=== PATIENT | male | born 1990 | race Caucasian/White ===

== ENCOUNTER 2019-08-19 21:00 | Emergency (ER) | payer OTHER ==
[~2019-08-19] VITALS: Ht 167.7 cm; Wt 68.9 kg
[2019-08-19 21:00] VITALS: BP 128/70
[2019-08-19] MEDS ORDERED: LIDOCAINE 1% INJ 20 ML 20 ML VIAL INJ ONE (21:15)
[2019-08-19] MEDS ORDERED: TETANUS,DIPTH,PERTUSS P/F (BOOSTRIX) 0.5 ML VIAL IM ONE (21:15)
--- NOTE | 2019-08-19 21:17 | ED Upper Extremity ---
General Chief Complaint: Laceration Stated Complaint: WRIST INJURY Nursing Triage Note: Patient is brought in via [facility]. Patient is currently in custody. Patient has cuts on his left wrist. Nursing Sepsis Screen: No Definite Risk Source: patient, police Exam Limitations: no limitations History of Present Illness Date Seen by Provider: Aug 19, 2019 Time Seen by Provider: 21:00 Initial Comments The patient is a 29-year-old male who presents for evaluation of a laceration to the left wrist. He is in place custody. Police mention to myself and the nurse prior to bringing him into the emergency department that the patient is a suspect in a violent homicide and that he is being brought in for evaluation of a laceration to his left wrist. The patient denies suicidal thoughts at this time. He is alert, calm, and answering questions appropriately. He states that he is not up-to-date with his tetanus immunization status. The laceration is superficial and he has full range of motion of his left forearm/wrist/hand. There is no bleeding. Onset: just prior to arrival Severity: mild Pain/Injury Location: left wrist (laceration) Method of Injury: incised Allergies and Home Medications Allergies Coded Allergies: No Known Drug Allergies (Unverified , 08/19/19) Patient Home Medication List Home Medication List Reviewed: Yes Review of Systems Constitutional: no symptoms reported EENTM: no symptoms reported Respiratory: no symptoms reported Cardiovascular: no symptoms reported Gastrointestinal: no symptoms reported Genitourinary: no symptoms reported Skin: other (laceration to the left wrist, superficial) Psychiatric/Neurological: No Symptoms Reported All Other Systems Reviewed Negative Unless Noted: Yes Past Xoiorkh-Meclsm-Ucvadt Hx Past Med/Social Hx: Reviewed Nursing Past Med/Soc Hx Patient Social History Recent Foreign Travel: No Contact w/Someone Who Travel: No Recent Infectious Disease Expo: No Physical Exam Vital Signs Vital Signs - First Documented 08/19/19 21:00 Temp 39.9 Pulse 92 Resp 18 B/P (MAP) 128/70 (89) Pulse Ox 100 O2 Delivery Room Air Capillary Refill : Less Than 3 Seconds Height, Weight, BMI Height: '" Weight: lbs. oz. kg; 24.00 BMI Method: General Appearance: WD/WN, no apparent distress HEENT: PERRL/EOMI, pharynx normal Neck: full range of motion, normal inspection Cardiovascular: regular rate, rhythm, no edema Respiratory: lungs clear, normal breath sounds, no respiratory distress, no accessory muscle use Shoulder: normal inspection, non-tender, no evidence of injury, normal ROM Elbow/Forearm: normal inspection, non-tender, no evidence of injury, normal ROM Wrist: Yes normal ROM, Yes abrasions (superficial laceration to left wrist approximately 4 cm in length) Hand: normal inspection, non-tender, no evidence of injury, normal ROM Neurologic/Psychiatric: broom bundler II-XII nml as tested, no motor/sensory deficits, alert, normal mood/affect, oriented x 3 Skin: normal color, warm/dry Procedures/Interventions Wound Location: Upper Extremities (left wrist) Other Wound Location left wrist, superficial Wound Length (cm): 4 Wound's Depth, Shape: superficial Wound Explored: clean Irrigated w/ Saline (ccs): 250 Anesthesia: 1% Lidocaine Volume Anesthetic (ccs): 2 Suture: Plain Suture Size: 4-0 Number of Sutures: 4 Layer Closure?: 1 Progress Patient tolerated the repair well and there were no consultations, antibiotic ointment applied with sterile dressing Progress/Results/Core Measures Results/Orders My Orders Orders - JON CASAS Pertuss(Acell),Tet Adult (Boostrix (08/19/19 21:15) Lidocaine 1% Inj 20 Ml (Xylocaine 1% Inj (08/19/19 21:15) Medications Given in ED Current Medications Medications Dose Ordered Sig/Anthony Route Start Time Stop Time Status Last Admin Dose Admin Diphtheria/ Tetanus/Acell Pertussis 0.5 ml ONCE ONCE IM 08/19/19 21:15 08/19/19 21:16 DC 08/19/19 21:27 0.5 ML Lidocaine HCl 20 ml ONCE ONCE INJ 08/19/19 21:15 08/19/19 21:16 DC 08/19/19 21:26 20 ML Vital Signs/I&O 08/19/19 21:00 Temp 39.9 Pulse 92 Resp 18 B/P (MAP) 128/70 (89) Pulse Ox 100 O2 Delivery Room Air Blood Pressure Mean: 89 Progress Progress Note : Progress Note @2135 - to depth updated. The patient will need to have the sutures removed in 7-10 days. Advised the patient to follow up with his doctor or return to the emergency department immediately for concern over infection, new or worsening symptoms. The patient is stable for discharge with police to fdc. Departure Impression Primary Impression: Laceration of left wrist Disposition: 21 DIS/[address]/LAW [employer] Condition: Stable Departure-Patient Inst. Decision time for Depature: 21:36 Referrals: NO,LOCAL PHYSICIAN (PCP) Primary Care Physician [facility] Patient Instructions: Laceration Repair With Stitches (DC), Tetanus Toxoid (Adsorbed) Add. Discharge Instructions: Your stitches should be removed in 7-10 days. Return to the emergency Department immediately for concern over infection, new or worsening symptoms. JON CASAS DO Aug 19, 2019 21:17
== END 2019-08-19 21:44 ==
LOC: ER FS 21:07
DX: S61.512A Laceration without foreign body of left wrist, initial encounter (principal); Z23 Encounter for immunization; X58.XXXA Exposure to other specified factors, initial encounter
CPT/HCPCS: 12001; 90715